=== PATIENT | female | born 1945 | race Two or more races ===

== ENCOUNTER 2018-07-03 08:31 | Emergency (ER) | payer OTHER ==
[~2018-07-03] VITALS: Ht 160 cm; Wt 68.0 kg
[2018-07-03] MEDS ORDERED: LEXAPRO5 MG PO (08:40)
[2018-07-03] MEDS ORDERED: TENORMIN50 MG PO (08:40)
[2018-07-03] MEDS ORDERED: CLONAZEPAM0.125 MG PO (08:40)
== END 2018-07-03 12:53 | disposition home or self-care (01) ==
LOC: ER 08:31
DX: R06.02 Shortness of breath (principal)

== ENCOUNTER → 2018-08-01 | Outpatient (CLI) | payer OTHER ==
[~2018-08-01] MED LIST: CLONAZEPAM0.125 MG PO; LEXAPRO5 MG PO; TENORMIN50 MG PO; ZESTRIL5 MG
== END | disposition home or self-care (01) ==
LOC: NUCLEAR 10:24
DX: I35.0 Nonrheumatic aortic (valve) stenosis (principal)

== ENCOUNTER 2018-08-04 09:13 | Emergency (ER) | payer OTHER ==
[~2018-08-04] VITALS: Ht 167.6 cm; Wt 68.0 kg
[~2018-08-04 09:13] MED LIST changes: -ZESTRIL5 MG
[2018-08-04] MEDS ORDERED: ZESTRIL5 MG (09:18)
== END 2018-08-04 21:19 | disposition home or self-care (01) ==
LOC: ER 09:13
DX: K29.60 Other gastritis without bleeding (principal); R06.02 Shortness of breath

== ENCOUNTER 2018-08-11 12:16 | Emergency (ER) | payer OTHER ==
[~2018-08-11] VITALS: Ht 167.6 cm; Wt 70.8 kg
[~2018-08-11 12:16] MED LIST changes: +ZESTRIL5 MG
== END 2018-08-11 17:37 | disposition home or self-care (01) ==
LOC: ER 12:16
DX: K52.89 Other specified noninfective gastroenteritis and colitis (principal)

== ENCOUNTER 2018-08-18 23:51 | Emergency (ER) | payer OTHER ==
[~2018-08-18] VITALS: Ht 167.6 cm; Wt 75.3 kg
== END 2018-08-19 19:24 | disposition home or self-care (01) ==
LOC: ER 23:51
DX: R51 Headache (principal); K29.70 Gastritis, unspecified, without bleeding; R06.02 Shortness of breath; R10.9 Unspecified abdominal pain

== ENCOUNTER 2018-09-12 19:44 | Emergency (ER) | payer OTHER ==
[~2018-09-12] VITALS: Ht 167.6 cm; Wt 65.8 kg
[2018-09-12] MEDS ORDERED: TOPROL XL50 M1 (19:51)
== END 2018-09-12 23:32 | disposition home or self-care (01) ==
LOC: ER 19:44
DX: K52.89 Other specified noninfective gastroenteritis and colitis (principal)

== ENCOUNTER 2018-09-13 10:32 | Emergency (ER) | payer OTHER ==
[~2018-09-13] VITALS: Ht 167.6 cm; Wt 75.3 kg
[~2018-09-13 10:32] MED LIST changes: +TOPROL XL50 M1
== END 2018-09-13 15:55 | disposition home or self-care (01) ==
LOC: ER 10:32 → CPU-OBS 10:39 → ER 10:39
DX: R07.89 Other chest pain (principal); R10.13 Epigastric pain